=== PATIENT | male | born 1985 | race Caucasian/White ===

== ENCOUNTER 2018-07-28 09:22 | Emergency (ER) | payer BC, OTHER ==
[2018-07-28] MEDS ORDERED: Ibuprofen TAB* 600 MG PO ONE (09:42)
[2018-07-28 09:45] VITALS: BP 138/78
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
== END 2018-07-28 11:54 | disposition home or self-care (01) ==
LOC: UCEAST 09:22
DX: S13.4XXA Sprain of ligaments of cervical spine, initial encounter (principal); M54.2 Cervicalgia; M25.511 Pain in right shoulder; F17.200 Nicotine dependence, unspecified, uncomplicated; R11.0 Nausea; Z88.2 Allergy status to sulfonamides; V49.88XA Car occupant (driver) (passenger) injured in other specified transport accidents, initial encounter; Y92.9 Unspecified place or not applicable
CPT/HCPCS: 72125; 99213; A9270-GY; G0463

== ENCOUNTER 2019-02-24 16:59 | Emergency (ER) | payer SELFPAY ==
[2019-02-24 17:33] VITALS: BP 130/75
--- NOTE | 2019-02-24 18:48 | UC ---
Complaint Male HPI - HPI Summary HPI Summary: 33-year-old male comes in with chief complaint of dysuria. Started 2 days ago with irritation in the distal urethra. [place] when he urinates. Initially had a rash. Has been treating with Neosporin. No fevers no chills no flank pain. Denies any concerns of an STI. Has had same partner for 5 years. Denies any new lubricants or soaps. Overall condition is improving some. No suprapubic pain. Patient is circumcised. - History of Current Complaint Chief Complaint: [facility] Stated Complaint: UTI Time Seen by Provider: 02/24/19 18:26 Pain Intensity: 0 - Allergies/Home Medications Allergies/Adverse Reactions: Allergies Allergy/AdvReac Type Severity Reaction Status Date / Time Sulfa (Sulfonamide Allergy Rash Verified 02/24/19 17:33 Antibiotics) PMH/Surg Hx/FS Hx/Imm Hx Previously Healthy: Yes - Surgical History Surgical History: None - Family History Known Family History: Negative: Blood Disorder - Social History Alcohol Use: Occasionally Substance Use Type: None Smoking Status (MU): Light Every Day Tobacco Smoker Review of Systems All Other Systems Reviewed And Are Negative: Yes Constitutional: Positive: Negative Skin: Positive: Other - SEE HPI Eyes: Positive: Negative ENT: Positive: Negative Respiratory: Positive: Negative Cardiovascular: Positive: Negative Gastrointestinal: Positive: Negative Genitourinary: Positive: Dysuria, Other - SEE HPI Motor: Positive: Negative Neurovascular: Positive: Negative Musculoskeletal: Positive: Negative Neurological: Positive: Negative Psychological: Positive: Negative Is Patient Immunocompromised?: No Physical Exam Triage Information Reviewed: Yes Appearance: Well-Appearing, No Pain Distress, Well-Nourished Vital Signs: Initial Vital Signs Temp 98.1 F 02/24/19 17:28 Pulse 66 02/24/19 17:28 Resp 16 02/24/19 17:28 BP 130/75 02/24/19 17:28 Pulse Ox 96 02/24/19 17:28 Vital Signs Reviewed: Yes Eye Exam: Normal Eyes: Positive: Conjunctiva Clear Neck: Positive: Supple Respiratory: Positive: No respiratory distress Abdomen Description: Positive: Nontender, Soft. Negative: CVA Tenderness (R), CVA Tenderness (L) Male Genital Exam: Positive: Other - Testicular exam is nontender there is no swelling. Testicles are symmetric. There is no urethral discharge. No rash. Musculoskeletal: Positive: Strength Intact, ROM Intact Neurological: Positive: Alert Psychological: Positive: Age Appropriate Behavior Skin Exam: Normal Complaint Male Course/Dx - Course Course Of Treatment: Overall examination is normal. Patient reports his symptoms are improving. Gonorrhea chlamydia are pending. Urine just had a trace of blood in it no leukocytes. Urine culture is pending. Patient denies any new potential irritants. We'll treat with Chlortrimazole topically and also treat with Macrobid 100 mg by mouth twice a day for 7 days. Patient is allergic to sulfa. And have the patient follow-up with urology if not completely improved. Reevaluate sooner if worse any questions concerns. - Differential Dx/Diagnosis Provider Diagnosis: Urethritis Discharge ED - Sign-Out/Discharge Documenting (check all that apply): Patient Departure All imaging exams completed and their final reports reviewed: No Studies - Discharge Plan Condition: Stable Disposition: HOME Prescriptions: Clotrimazole 1% CREAM* [Clotrimazole 1%*] 1 applic TOPICAL BID #1 tube Nitrofurantoin Monohyd/M-Cryst [Macrobid 100 mg Capsule] 100 mg PO BID #14 cap Patient Education Materials: Nonspecific Urethritis in Men (ED), Dysuria (ED) Referrals: Terrell Valerio MD [Medical Doctor] - Kuldip Campoverde MD [Medical Doctor] - Additional Instructions: FOLLOW UP WITH UROLOGY. GET RECHECKED SOONER IF YOUR CONDITION WORSENS; PAIN, FEVER, YOU FEEL ILL OR ANY QUESTIONS OR CONCERNS. - Billing Disposition and Condition Condition: STABLE Disposition: Home
[2019-02-28 13:19] LABS: Chlamydia trachomatis NAA Negative (Negative); Neisseria gonorrhoeae (GC) NAA Negative (Negative)
== END 2019-02-24 19:00 | disposition home or self-care (01) ==
LOC: UCEAST 16:59
DX: N34.2 Other urethritis (principal); F17.290 Nicotine dependence, other tobacco product, uncomplicated; Z88.2 Allergy status to sulfonamides
CPT/HCPCS: 81003; 87086; 87491; 87591; 99212; G0463

== ENCOUNTER 2019-06-09 07:58 | Emergency (ER) | payer BC ==
[2019-06-09 08:07] VITALS: BP 131/70
== END 2019-06-09 09:13 | disposition left against medical advice (07) ==
LOC: UCEAST 07:58
DX: Z53.21 Procedure and treatment not carried out due to patient leaving prior to being seen by health care provider (principal)